=== PATIENT | female | born 1930 | race Caucasian/White ===

== ENCOUNTER 2018-08-22 12:56 | Emergency (ER) | payer MEDICARE ==
[2018-08-22 13:04] VITALS: BP 150/58
--- NOTE | 2018-08-22 13:24 | ER Document Report ---
ED Medical Screen (RME) - General Chief Complaint: Eye Problem Stated Complaint: FALL/FACIAL PAIN, LEFT EYE PAIN Time Seen by Provider: 08/22/18 13:01 Mode of Arrival: Ambulatory Information source: Patient Notes: 88-year-old female presents with complaint of left eye blurred vision that started today. Patient reports that she had a trip and fall 3 days prior to arrival where she struck her face on the ground. She denies loss of consciousness but states that her glasses did get shoved into her face. Patient is currently on Xarelto after being diagnosed with a pulmonary embolism in January 2018. I have greeted and performed a rapid initial assessment of this patient. A comprehensive ED assessment and evaluation of the patient, analysis of test results and completion of medical decision making process we will be contacted by additional ED providers. PHYSICAL EXAMINATION: Vital signs reviewed GENERAL: Well-appearing, well-nourished and in no acute distress. LUNGS: No respiratory distress Musculoskeletal: Normal range of motion NEUROLOGICAL: Normal speech, normal gait. PSYCH: Normal mood, normal affect. SKIN: Warm, Dry, normal turgor, no rashes or lesions noted. TRAVEL OUTSIDE OF THE [place] IN LAST 30 DAYS: No - HPI Onset: This morning Onset/Duration: Sudden Quality of pain: No pain Associated Symptoms: denies: Headache, Nausea, Vomiting, Weakness Exacerbated by: Denies Relieved by: Denies Similar symptoms previously: No Recently seen / treated by doctor: No - Related Data Smoking: Non-smoker Frequency of alcohol use: None Drug Abuse: None Allergies/Adverse Reactions: alendronate sodium [From Fosamax] Allergy (Verified 08/22/18 12:57) ROBXIN Allergy (Uncoded 08/22/18 12:57) Past Medical History - Past Medical History Cardiac Medical History: Reports: Hx Hypertension - MEDS Denies: Hx Heart Attack Pulmonary Medical History: Denies: Hx Asthma Neurological Medical History: Denies: Hx Cerebrovascular Accident, Hx Seizures GI Medical History: Denies: Hx Hepatitis, Hx Hiatal Hernia, Hx Ulcer Infectious Medical History: Denies: Hx Hepatitis Past Surgical History: Reports: Hx Hysterectomy. Denies: Hx Mastectomy, Hx Open Heart Surgery, Hx Pacemaker Physical Exam - Vital signs Vitals: Temp Pulse Resp BP Pulse Ox 98.0 F 79 16 150/58 H 96 08/22/18 13:03 08/22/18 13:03 08/22/18 13:03 08/22/18 13:03 08/22/18 13:03 Course - Vital Signs Vital signs: Temp Pulse Resp BP Pulse Ox 98.0 F 79 16 150/58 H 96 08/22/18 13:03 08/22/18 13:03 08/22/18 13:03 08/22/18 13:03 08/22/18 13:03 Doctor's Discharge - Discharge Referrals: CHAPITO SOUTH MD [Primary Care Provider] - Follow up as needed
--- NOTE | 2018-08-22 14:01 | RADIOLOGY REPORT (SQ) ---
EXAM DESCRIPTION: CT HEAD WITHOUT COMPLETED DATE/TIME: 08/22/2018 1:47 pm REASON FOR STUDY: fall on xarelto COMPARISON: None. TECHNIQUE: Axial images acquired through the brain without intravenous contrast. Images reviewed wi th bone, brain and subdural windows. Images stored on PACS. All CT scanners at this facility use dose modulation, iterative reconstruction, and/or weight based d osing when appropriate to reduce radiation dose to as low as reasonably achievable (ALARA). [facility]: Dose Right [facility]: CareDose [facility]: Dose Right [facility]: Teradose 4D [facility]: Smart VideoSurf RADIATION DOSE: CT Rad equipment meets quality standard of care and radiation dose reduction techniq ues were employed. CTDIvol: 53.2 mGy. DLP: 991 mGy-cm. mGy. LIMITATIONS: None. FINDINGS: VENTRICLES: Normal size and contour. CEREBRUM: No masses. No hemorrhage. No midline shift. No evidence for acute infarction. Normal gra y/white matter differentiation. No areas of low density in the white matter. Physiologic calcificati ons of basal ganglia. CEREBELLUM: No masses. No hemorrhage. No alteration of density. No evidence for acute infarction. EXTRAAXIAL SPACES: No fluid collections. No masses. ORBITS AND GLOBE: No intra- or extraconal masses. Normal contour of globe without masses. CALVARIUM: No fracture. PARANASAL SINUSES: No fluid or mucosal thickening. SOFT TISSUES: No mass or hematoma. OTHER: No other significant finding. IMPRESSION: No acute intracranial hemorrhage. EVIDENCE OF ACUTE STROKE: NO. COMMENT: Quality ID # [id number]: Final reports with documentation of one or more dose reduction techniques (e.g., Automated exposure control, adjustment of the mA and/or kV according to patient size, use of iterative reconstruction technique) TECHNICAL DOCUMENTATION: JOB ID: [id number] [employer]- All Rights Reserved Reading location - IP/workstation name: [email or web address]
--- NOTE | 2018-08-22 14:39 | ER Document Report ---
ED General - General Chief Complaint: Eye Problem Stated Complaint: FALL/FACIAL PAIN, LEFT EYE PAIN Time Seen by Provider: 08/22/18 13:01 Mode of Arrival: Ambulatory Information source: Patient Notes: 88-year-old female presents emergency department with complaints of left eye vision changes. She states that she is having blurred vision in the left eye. She states that it started today. Patient states that she woke up and took a shower. She states that while she was in the shower she noticed her vision was blurred out of the left eye. Patient states that when she covers up the left eye she has normal vision but when she covers her right eye just uses her left eye is blurred. Patient states that she does wear glasses and does see an eye doctor. Patient states that she tripped and fell down some stairs 3 days ago. She denies LOC. She states that she struck the left side of her face on the ground. She was wearing her glasses at that time. Patient notes that the glasses caused an abrasion to the lateral face and pain to the tear duct area. She denies speech changes, numbness, tingling, or weakness. TRAVEL OUTSIDE OF THE [place] IN LAST 30 DAYS: No - HPI Onset: This morning Onset/Duration: Sudden Quality of pain: No pain Severity: None Pain Level: Denies Associated symptoms: None Exacerbated by: Denies Relieved by: Denies Similar symptoms previously: No Recently seen / treated by doctor: No - Related Data Allergies/Adverse Reactions: alendronate sodium [From Fosamax] Allergy (Verified 08/22/18 12:57) ROBXIN Allergy (Uncoded 08/22/18 12:57) Past Medical History - General Information source: Patient - Social History Smoking Status: Never Smoker Chew tobacco use (# tins/day): No Frequency of alcohol use: None Drug Abuse: None Family History: Reviewed & Not Pertinent Patient has suicidal ideation: No Patient has homicidal ideation: No - Past Medical History Cardiac Medical History: Reports: Hx Hypertension - MEDS Denies: Hx Heart Attack Pulmonary Medical History: Denies: Hx Asthma Neurological Medical History: Denies: Hx Cerebrovascular Accident, Hx Seizures Renal/ Medical History: Denies: Hx Peritoneal Dialysis GI Medical History: Denies: Hx Hepatitis, Hx Hiatal Hernia, Hx Ulcer Infectious Medical History: Denies: Hx Hepatitis Past Surgical History: Reports: Hx Hysterectomy. Denies: Hx Mastectomy, Hx Open Heart Surgery, Hx Pacemaker Review of Systems - Review of Systems Constitutional: No symptoms reported EENT: Blurred vision Cardiovascular: No symptoms reported Respiratory: No symptoms reported Gastrointestinal: No symptoms reported Genitourinary: No symptoms reported Female Genitourinary: No symptoms reported Musculoskeletal: No symptoms reported Skin: Lesions Hematologic/Lymphatic: No symptoms reported Neurological/Psychological: No symptoms reported -: Yes All other systems reviewed and negative Physical Exam - Vital signs Vitals: Temp Pulse Resp BP Pulse Ox 98.0 F 79 16 150/58 H 96 08/22/18 13:03 08/22/18 13:03 08/22/18 13:03 08/22/18 13:03 08/22/18 13:03 - Notes Notes: PHYSICAL EXAMINATION: GENERAL: Well-appearing, well-nourished and in no acute distress. HEAD: Atraumatic, normocephalic. EYES: Pupils equal round and reactive to light, extraocular movements intact, conjunctival hemorrhage to the 9 oclock position. ENT: Nares patent, oropharynx clear without exudates. Moist mucous membranes. NECK: Normal range of motion, supple without lymphadenopathy LUNGS: Breath sounds clear to auscultation bilaterally and equal. No wheezes rales or rhonchi. HEART: Regular rate and rhythm without murmurs ABDOMEN: Soft, nontender, nondistended abdomen. No guarding, no rebound. No masses appreciated. Female : deferred Musculoskeletal: Normal range of motion, no pitting or edema. No cyanosis. NEUROLOGICAL: Cranial nerves grossly intact. Normal speech, normal gait. Normal sensory, motor exams PSYCH: Normal mood, normal affect. SKIN: Warm, Dry, normal turgor, no rashes or lesions noted. Course - Re-evaluation Re-evalutation: 08/22/18 14:39 Patient complains of blurred vision to the Left eye that started when she woke up this morning. She denies any pain. She denies any vision loss, floaters, dark shadows in her vision, or a curtain falling. Says that it's just blurred. Visual acuity done. Right eye 20/30, left eye 20/200. Ignacio-Pen used to evaluate for glaucoma. Patient had normal intraocular pressures of the value of 10. This was repeated x3. Ultrasound was placed over the left eye to evaluate for retinal detachment. No detachment appreciated. No hyphema. No signs of central retinal artery or vein occlusion. A slight corneal abrasion to the 6 oclock position when evaluated with henao lamp. I discussed my findings with the patient and her daughter. I instructed them to follow up with her data specialist on Friday. I told him to return to the emergency department for any worsening symptoms and to continue taking medications as directed. They are agreeable with plan of care. - Vital Signs Vital signs: Temp Pulse Resp BP Pulse Ox 98.0 F 79 16 150/58 H 96 08/22/18 13:03 08/22/18 13:03 08/22/18 13:03 08/22/18 13:03 08/22/18 13:03 Discharge - Discharge Clinical Impression: Subconjunctival hemorrhage of left eye Corneal abrasion Qualifiers: Encounter type: initial encounter Laterality: left Qualified Code(s): S05.02XA - Injury of conjunctiva and corneal abrasion without foreign body, left eye, initial encounter Abrasion of face Qualifiers: Encounter type: initial encounter Qualified Code(s): S00.81XA - Abrasion of other part of head, initial encounter Condition: Good Disposition: HOME, SELF-CARE Instructions: Corneal Abrasion ([facility]) Additional Instructions: Please return for vision loss, floaters in your visual field, darkness in your visual field, slurred speech, numbness or tingling of your extremities, or weakness of your extremities. Prescriptions: Erythromycin Base [Erythromycin Oph 1 gm Oint Ud] 1 applic OS Q4 #1 tube Referrals: CHAPITO SOUTH MD [ACTIVE STAFF] - Follow up as needed
== END 2018-08-22 15:15 | disposition home or self-care (01) ==
LOC: ER 12:56
DX: S05.02XA Injury of conjunctiva and corneal abrasion without foreign body, left eye, initial encounter (principal); S00.81XA Abrasion of other part of head, initial encounter; H11.32 Conjunctival hemorrhage, left eye; R51 Headache; H57.12 Ocular pain, left eye; W19.XXXA Unspecified fall, initial encounter; I10 Essential (primary) hypertension; Z79.899 Other long term (current) drug therapy
CPT/HCPCS: 70450; 99283

== ENCOUNTER 2019-11-12 07:31 | Emergency (ER) | payer MEDICARE ==
[2019-11-12] MEDS ORDERED: IPRATROPIUM/ALBUTEROL 0.5-2.5 MG/3 ML AMPUL NEB ONE (07:54)
[2019-11-12] MEDS ORDERED: PIPERACILLIN/TAZOBACTAM 3.375 GM VIAL IV ONE (07:54)
[2019-11-12] MEDS ORDERED: BUDESONIDE NEB 0.5 MG/2 ML AMPUL NEB ONE (07:55)
--- NOTE | 2019-11-12 07:59 | ER Document Report ---
ED General - General Stated Complaint: DIFFICULTY BREATHING Time Seen by Provider: 11/12/19 07:51 Primary Care Provider: KATERYNA GARDUNO MD [Primary Care Provider] - Follow up as needed Information source: Patient Cannot obtain history due to: Dementia Notes: Patient transferred here by EMS for difficulty breathing. History by EMS is that patient was diagnosed with pneumonia yesterday at the doctor's office and started on antibiotics [amoxil] at that time. History and physical are limited by patient's dementia and acuity. Per EMS patient was found with a sat of 77% appeared pale and short of breath. They started the patient on BiPAP and nitro drip per their CHF protocol. With this therapy patient symptoms improved. In route patient had frequent PVCs. Patient denies any pain. No other complaints. Meds include lasix and xarelto for h/o dvt's. No cardiac history per daughter. TRAVEL OUTSIDE OF THE [place] IN LAST 30 DAYS: No - Related Data Allergies/Adverse Reactions: alendronate sodium [From Fosamax] Allergy (Verified 08/22/18 12:57) ROBXIN Allergy (Uncoded 08/22/18 12:57) Past Medical History - General Information source: Patient Cannot obtain history due to: Dementia - Social History Smoking Status: Unknown if Ever Smoked Frequency of alcohol use: None Drug Abuse: None Lives with: Family Family History: Reviewed & Not Pertinent - Past Medical History Cardiac Medical History: Reports: Hx Hypertension - MEDS Denies: Hx Heart Attack Pulmonary Medical History: Denies: Hx Asthma Neurological Medical History: Denies: Hx Cerebrovascular Accident, Hx Seizures Renal/ Medical History: Denies: Hx Peritoneal Dialysis GI Medical History: Denies: Hx Hepatitis, Hx Hiatal Hernia, Hx Ulcer Infectious Medical History: Denies: Hx Hepatitis Past Surgical History: Reports: Hx Hysterectomy. Denies: Hx Mastectomy, Hx Open Heart Surgery, Hx Pacemaker Review of Systems - Review of Systems -: Yes ROS unobtainable due to patient's medical condition Physical Exam - Vital signs Vitals: BP Pulse Ox 158/60 H 86 L 11/12/19 07:34 11/12/19 07:34 Interpretation: Tachypneic - General General appearance: Alert, Other - AWAKE - HEENT Head: Normocephalic, Atraumatic Eyes: Normal Extraocular movements intact: Yes Mouth/Lips: Normal Pharynx: Normal Neck: Normal - Respiratory Respiratory status: Respiratory distress Chest status: Nontender Breath sounds: Rales, Rhonchi, Wheezing - Cardiovascular Rhythm: Irregularly irregular, Tachycardia Murmur: No Pulses: Normal: Radial - Abdominal Inspection: Normal Distension: No distension Tenderness: Nontender - Back Back: Normal - Extremities General upper extremity: Normal inspection, Normal ROM General lower extremity: Normal inspection, Normal ROM - Neurological Neuro grossly intact: Yes Cognition: Other - BASELINE DEMENTIA Speech: Normal Motor strength normal: LUE, RUE, LLE, RLE - Psychological Associated symptoms: Normal mood - Skin Skin Temperature: Warm Skin Moisture: Dry Course - Re-evaluation Re-evalutation: 11/12/19 08:15 BiPAP was maintained on acceptance of the patient from EMS. I have started weaning down the nitroglycerin drip which was at [facility] to bring it down to 5 with systolic blood pressure of 130. EKG per my interpretation shows ventricular bigeminy at a rate of 90 with left atrial abnormality and left ventricular hypertrophy. No old EKGs available for comparison. I have ordered IV antibiotics and DuoNeb and Pulmicort treatments. Patient is on the monitor is currently stable. I anticipate admission to ICU. Chest x-ray to my interpretation shows a left-sided pneumonia. 11/12/19 08:19 Preliminary lab work reviewed includes a troponin of 11 which I attribute to el evated creatinine of 2 and a cardiac component to her respiratory arrest. Patient is currently resting comfortably and the nitroglycerin drip has been stopped for systolic blood pressure of 105. 11/12/19 09:01 Discussed case in detail with citizenship teacher Dr. Hackett, who recommends Cardiology consult for elevated troponin of 11. Pt stable. Pt is already on xarelto, so we will hold heparin at this time. 11/12/19 09:13 Discussed case in detail with Utility Division Project Manager with Dr. Duncan, who says that if family wants aggressive management with heart catheterization, we will need to transfer the patient since we do not have an operating therapeutic [employer] Consultant at this time. Otherwise, we can manage here. Family daughter is requesting transfer for heart catheterization and management. 11/12/19 09:29 FI02 DOWN TO 50%. DISCUSSED CASE IN DETAIL WITH DR. COCO REYES, AT [facility], WHO ACCEPTS PT IN TRANSFER. PT IS STABLE AND HAS A SLIGHT HEADACHE, LIKELY DUE TO NTG DRIP WHICH WE WILL D/C. - Vital Signs Vital signs: Temp Pulse Resp BP Pulse Ox 98.5 F 33 H 108/82 99 11/12/19 07:35 11/12/19 09:00 11/12/19 08:47 11/12/19 09:00 - Laboratory Result Diagrams: 11/12/19 07:39 11/12/19 07:39 Laboratory results interpreted by me: 11/12/19 11/12/19 11/12/19 07:39 07:39 07:39 RDW 15.1 H Seg Neuts % (Manual) 90 H Lymphocytes % (Manual) 4 L Abs Neuts (Manual) 9.2 H Abs Lymphs (Manual) 0.4 L PT 16.2 H VBG pH Carbon Dioxide 21 L BUN 39 H Creatinine 1.99 H Est GFR ( Amer) 29 L Est GFR (MDRD) Non-Af 24 L Glucose 120 H AST 360 H Lipase 362.5 H 11/12/19 07:39 RDW Seg Neuts % (Manual) Lymphocytes % (Manual) Abs Neuts (Manual) Abs Lymphs (Manual) PT VBG pH 7.20 L Carbon Dioxide BUN Creatinine Est GFR ( Amer) Est GFR (MDRD) Non-Af Glucose AST Lipase Critical Care Note - Critical Care Note Total time excluding time spent on procedures (mins): 67 Discharge - Discharge Clinical Impression: Respiratory distress, Cardiopulmonary arrest, NSTEMI (non-ST elevated myocardial infarction), Elevated troponin Pneumonia Qualifiers: Pneumonia type: due to unspecified organism Laterality: left Lung location: unspecified part of lung Qualified Code(s): J18.9 - Pneumonia, unspecified organism Condition: Serious Disposition: [facility] Referrals: KATERYNA GARDUNO MD [Primary Care Provider] - Follow up as needed ED Sepsis - Sepsis Documentation Sepsis Patient: No
[2019-11-12 08:09] LABS: HEMATOCRIT 46.1 % (36.0-47.0); HEMOGLOBIN 15.2 g/dL (12.0-15.5); MEAN CORPUSCULAR HEMOGLOBIN 29.4 pg (27.0-33.4); MEAN CORPUSCULAR VOLUME 89 fl (80-97); PLATELET COUNT 183 10^3/uL (150-450); RED BLOOD COUNT 5.17 10^6/uL (3.72-5.28); RED CELL DISTRIBUTION WIDTH 15.1 % (11.5-14.0); WHITE BLOOD COUNT 10.2 10^3/uL (4.0-10.5)
[2019-11-12 08:14] LABS: ALBUMIN 3.7 g/dL (3.5-5.0); ALKALINE PHOSPHATASE 74 U/L (38-126); ANION GAP 16 (5-19); ASPARTATE AMINO TRANSFERASE 360 U/L (14-36); BILIRUBIN,DIRECT 0.4 mg/dL (0.0-0.4); BILIRUBIN,TOTAL 0.5 mg/dL (0.2-1.3); BLOOD UREA NITROGEN 39 mg/dL (7-20); CARBON DIOXIDE 21 mmol/L (22-30); CHLORIDE 102 mmol/L (98-107); GLUCOSE 120 mg/dL (75-110); POTASSIUM 4.7 mmol/L (3.6-5.0); TOTAL PROTEIN 6.4 g/dL (6.3-8.2)
[2019-11-12 08:21] LABS: INTERNATIONAL RATION (INR) 1.29; PROTHROMBIN TIME 16.2 SEC (11.4-15.4)
--- NOTE | 2019-11-12 08:26 | RADIOLOGY REPORT (SQ) ---
EXAM DESCRIPTION: CHEST SINGLE VIEW COMPLETED DATE/TIME: 11/12/2019 7:49 am REASON FOR STUDY: DIFF BREATHING COMPARISON: None. EXAM PARAMETERS: NUMBER OF VIEWS: One view. TECHNIQUE: An AP view of the chest was obtained. RADIATION DOSE: NA LIMITATIONS: None. FINDINGS: LUNGS AND PLEURA: Asymmetric patchy consolidation in the left mid lung and base. The left lateral costophrenic sulcus is blunted. There is no pneumothorax. MEDIASTINUM AND HILAR STRUCTURES: No mediastinal or hilar contour abnormality. HEART AND VASCULAR STRUCTURES: The cardiac silhouette and pulmonary vasculature are within normal nash its. BONES: No acute findings. HARDWARE: Tube that projects over the right hemithorax. OTHER: No other finding. IMPRESSION: Asymmetric patchy consolidation in the left mid lung and base - correlate clinically to exclude a pneumonia. TECHNICAL DOCUMENTATION: JOB ID: [id number] [employer]- All Rights Reserved Reading location - IP/workstation name: [email or web address]
[2019-11-12 08:30] LABS: ABSOLUTE LYMPHOCYTES# (MANUAL) 0.4 10^3/uL (0.5-4.7); ABSOLUTE MONOCYTES # (MANUAL) 0.6 10^3/uL (0.1-1.4); ANISOCYTOSIS SLIGHT; BASOPHILS % (MANUAL) 0 % (0-2); EOSINOPHILS % (MANUAL) 0 % (0-6); LYMPHOCYTES % (MANUAL) 4 % (13-45); MONOCYTES % (MANUAL) 6 % (3-13); PLATELET COMMENT ADEQUATE; SEGMENTED NEUTROPHILS % (MAN) 90 % (42-78); TOTAL CELLS COUNTED 100
[2019-11-12 08:32] LABS: OVALOCYTES SLIGHT; PLATELET LARGE PRESENT
[2019-11-12 09:15] LABS: VENOUS BLOOD BASE EXCESS -7.2 mmol/L; VENOUS BLOOD HCO3 21.6 mmol/L (20-32); VENOUS BLOOD PCO2 56.5 mmHg (35-63); VENOUS BLOOD PH 7.2 (7.30-7.42)
[2019-11-12 12:07] LABS: APPEARANCE,URINE CLOUDY; BILIRUBIN,URINE NEGATIVE (NEGATIVE); GLUCOSE, URINE 50 mg/dL (NEGATIVE); KETONES,URINE NEGATIVE (NEGATIVE); LEUKOCYTE ESTERASE,URINE NEGATIVE (NEGATIVE); NITRITE,URINE NEGATIVE (NEGATIVE); PROTEIN,URINE 100 mg/dL (NEGATIVE); URINE SPECIFIC GRAVITY 1.017
[2019-11-12 12:11] LABS: COLOR,URINE YELLOW
[2019-11-12 12:47] VITALS: BP 149/55
--- NOTE | 2019-11-12 19:27 | EKG REPORT ---
SEVERITY:- ABNORMAL ECG - SINUS TACHYCARDIA VENTRICULAR BIGEMINY PROBABLE LEFT ATRIAL ABNORMALITY LEFT ANTERIOR FASCICULAR BLOCK LVH WITH SECONDARY REPOLARIZATION ABNORMALITY ANTERIOR INFARCT, AGE INDETERMINATE : Confirmed by: Denia Kendall MD 12-Nov-2019 19:27:15
== END 2019-11-12 13:04 | disposition short-term general hospital (02) ==
LOC: ER 07:31
DX: I21.4 Non-ST elevation (NSTEMI) myocardial infarction (principal); I46.9 Cardiac arrest, cause unspecified; J18.9 Pneumonia, unspecified organism; R51 Headache; I11.9 Hypertensive heart disease without heart failure; F03.90 Unspecified dementia, unspecified severity, without behavioral disturbance, psychotic disturbance, mood disturbance, and anxiety; Z79.01 Long term (current) use of anticoagulants; Z79.899 Other long term (current) drug therapy; Z86.718 Personal history of other venous thrombosis and embolism
CPT/HCPCS: 93005; 94640; 99285; 51702; 96365; 36415; 87040; 83690; 83735; 85025; 85610; 80053; 81001; 84484; 82803; 71045; 93010; 94660; A9270; J2543; J7620